=== PATIENT | male | born 2000 | race Caucasian/White ===

== ENCOUNTER → 2021-04-26 10:49 | Outpatient (BNVA) | payer BC, MEDICAID, SELFPAY | PROVIDERS: Family Provider Registered Nurse; PCP Registered Nurse; Visit Provider Registered Nurse Neonatal Intensive Care | DX: R52 Pain, unspecified (principal); S63.501A Unspecified sprain of right wrist, initial encounter; X58.XXXA Exposure to other specified factors, initial encounter; Z71.89 Other specified counseling | CPT/HCPCS: 73110 ==

== ENCOUNTER 2023-06-02 17:35 | Emergency (ER) | payer OTHER, BC, MEDICAID, SELFPAY ==
[2023-06-02 17:36] VITALS: BP 148/82; PULSE 75; RESP 17; TEMP 37.2; O2SAT 97; BMI 21.4
--- NOTE | 2023-06-02 17:44 | ECG_ITS ---
[facility] Test Date: 2023-06-02 Pat Name: Yasmani Lira Department: Room: Gender: Male Ios Architect: : 2000 Requested By: Felice Smith Order Number: [id number] Khan MD: Ancelmo Newberry M.D. Measurements Intervals [place] Rate: 84 P: 66 MN: 141 QRS: 90 QRSD: 109 T: 35 QT: 360 QTc: 426 Interpretive Statements SINUS RHYTHM WITH SINUS ARRHYTHMIA No previous ECG available for comparison Electronically Signed On 06-02-2023 20:33:49 CDT by Ancelmo Newberry M.D. [id number]
[2023-06-02 17:49] VITALS: BP 151/73; PULSE 91; RESP 17; O2SAT 99
--- NOTE | 2023-06-02 17:56 | XRR_ITS ---
PROCEDURE INFORMATION: Exam: XR Chest Exam date and time: 06/02/2023 6:27 PM Age: 23 years old Clinical indication: Chest pressure; Patient HX: Sudden onset right chest pain; Nonsmoker; HX asthma TECHNIQUE: Imaging protocol: Radiologic exam of the chest. Views: 1 view. COMPARISON: CR XR ribs RT mn 3V w CXR1V [id number] 03/10/2017 8:10 PM FINDINGS: Tubes, catheters and devices: Overlying monitor leads. Lungs: Unremarkable. No consolidation. Pleural spaces: Unremarkable. No pleural effusion. No pneumothorax. Heart/Mediastinum: Unremarkable. No cardiomegaly. Bones/joints: Visualized osseous structures show no acute abnormality. Other findings: No significant change with prior exam. XR/XR chest 1V portable [id number] IMPRESSION: No acute cardiopulmonary abnormality.
--- NOTE | 2023-06-02 17:57 | W.ED.CHESTPA ---
HPI - Chest Pain General: Chief Complaint: Chest Pain Stated Complaint: tightness in chest Time Seen by Provider: 06/02/23 17:39 History of Present Illness: This patient came to the emergency department because he had onset of sharp chest pain approximately an hour prior to arrival and he thought he might be having a heart attack. 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 He states that he released the tension and then stood up and felt sharp pain in his right chest. He states the pain seems to worsen with deep breaths. He denies any prior history of similar occurrence. He has no history of heart disease. He has had a normal active lifestyle with any restrictions previously. He does vape occasionally but does not smoke tobacco. No feelings of extreme shortness of breath, fever chills cough etc. No abdominal pain. He did not fall or injure himself. Associated symptoms: Deny abdominal pain, dyspnea, fever(s), nausea, palpitations, syncope or vomiting Review of Systems Const: Denies: fever(s) or chills ENMT: Denies: throat pain, odynophagia, nasal discharge or nasal congestion Card: Denies: palpitations, irregular heart rhythm, lightheadedness, syncope or pre-syncope Resp: Denies: dyspnea, productive cough, non-productive cough or wheezing GI: Denies: abdominal pain, nausea or vomiting : Denies: flank pain, difficulty urinating or dysuria Musc: Denies: neck pain, extremity pain or extremity swelling Neuro: Denies: headache(s), numbness in extremities or weakness in extremities [facility] ED PFSH: Social History (Updated 04/26/21 @ 10:24 by Yessenia Hernandes LPN) Smoking and tobacco status: never smoked Physical Exam Narrative: EXAM NARRATIVE: The patient is alert no acute distress answers questions in a goal-directed fashion. Const: COMMON NORMALS: no acute distress, average body habitus, patient oriented x3 and alert GENERAL APPEARANCE: cooperative and comfortable HENMT: COMMON NORMALS: normocephalic, Normal nasal mucous membranes and turbinates present and moist oral mucous membranes HEAD & SCALP: normocephalic NOSE: Normal nasal mucous membranes and turbinates present Eye: COMMON NORMALS: Equal, round and reactive pupils present, EOMs intact bilaterally and conjunctivae normal CONJUNCTIVA: Yes conjunctivae normal PUPIL: Yes Equal, round and reactive pupils present Neck/C-Spine: COMMON NORMALS: full ROM and supple Chest: COMMONS NORMALS: normal inspection of the chest Chest images (male): 1. Area of tenderness Resp: COMMON NORMALS: normal respiratory effort, No retractions, No use of accessory muscles and clear to auscultation bilaterally AUSCULTATION: clear to auscultation bilaterally Cardio: COMMON NORMALS: regular rate, regular rhythm, No murmurs present (Cardio) and Peripheral pulses 2+ throughout RATE: regular rate RHYTHM: regular rhythm PERIPHERAL PULSES: Peripheral pulses 2+ throughout GI: COMMON NORMALS: Normal to inspection, nondistended, normoactive bowel sounds present, Soft to palpation and non-tender PALPATION: Yes Soft to palpation : COMMON NORMALS: Yes no CVA tenderness BLADDER/KIDNEY EXAM: Yes no CVA tenderness Back/Pelvis: COMMON NORMALS: no CVA tenderness, thoracic and lumbar spine normal to inspection, thoraco-lumbar ROM normal and straight leg raise negative bilaterally BACK IMAGE (MALE): 1. Area of tenderness Extremity: COMMON NORMALS: normal to inspection, full ROM, capillary refill normal, no calf tenderness and no pedal edema Neuro: COMMON NORMALS: patient oriented x3, moves all extremities, no focal motor deficits and no sensory deficits noted SENSORIUM/ORIENTATION: Yes alert CRANIAL NERVES: Yes CN normal except as noted Psych: COMMON NORMALS: mental status grossly normal Skin: COMMON NORMALS: no rashes or lesions noted, no wounds and turgor normal GENERAL SKIN EXAM: no rashes or lesions noted and turgor normal Course Reevaluation(s): Reevaluation #1: The patient remains comfortable without any new findings on repeat evaluation. He has normal vital signs including normal blood pressure, pulse oximetry no evidence of tachycardia etc. Time: 18:54 Vital Signs: Vital signs: Vital Signs Temperature 99 F 06/02/23 17:36 Pulse Rate 91 06/02/23 17:49 Respiratory Rate 17 06/02/23 17:49 Blood Pressure 151/73 06/02/23 17:49 Pulse Oximetry 99 06/02/23 17:49 Oxygen Delivery Me thod Room Air 06/02/23 17:49 MDM - Chest Pain Medical Decision Making This patient made his way to the emergency department after he suffered acute onset of right trunk pain after he was involved in helping load and adjust a ratchet strap on the trailer. He states he was doing this activity and then stood back up and felt pain in his right trunk. He did not fall or have any associated trauma. He is concerned he might be having a heart problem although he has no history of cardiovascular disease and is normally very healthy. His clinical examination revealed to be in no acute distress had normal body habitus. He did have tenderness to palpation over the right anterior lateral chest as well as the corresponding right thoracic region of his trunk. There is no evidence of ecchymosis, subcutaneous emphysema etc. Rotation of his trunk exacerbated his symptoms. Resting EKG was reassuring without any acute changes. His prolonged monitoring in the emergency department revealed normal sinus rhythm without arrhythmia. Chest x-ray obtained did not reveal any evidence of pneumothorax or other concerning findings. He remained stable in the emergency department without any stigmata that would suggest any ongoing emergency medical condition. We discussed current findings their limitations ramifications and reasons to return to the emergency department. XR interpretation done by ED provider, pending radiology final review EKG Data EKG 1: I personally reviewed and interpreted this EKG as follows: Interpretation: Contemporaneous review of resting EKG reveals a ventricular rate of 84 bpm. Normal SC interval, normal QRS duration, normal corrected QT interval. Normal axis. He has episodic sinus arrhythmia but otherwise no acute ST-T wave changes at this time. Discharge Plan Discharge Patient Disposition: Home Clinical Impression: Chest wall pain Condition: Stable Prescriptions: No Action doxycycline hyclate 100 mg capsule 100 mg PO BID 7 Days Qty: 14 0RF amoxicillin-pot clavulanate [Augmentin] 875-125 mg tablet 1 tab PO BID 7 Days Qty: 14 0RF Discharge Orders: Discharge ED (Routine); Ordered 06/02/23 Ordered By: Felice Smith Referrals: Diane Brito FNP [Primary Care Provider] - Discharge Diet: Usual diet Discharge Activity: Limit activity as instructed Patient Instructions: Opioid Safety, Pain Management Activity Restrictions/Additional Instructions: As we discussed your evaluation in the emergency department did reveal any serious cause of your symptoms. Is likely due to strain of the muscles and other tissues of your chest and back. Should you develop increasing pain, fever or difficulty breathing or other concerning symptoms return to the emergency department for reevaluation. Stand Alone Forms: Work/School Release Coding Level of Care Code ED Tuckpointer Cleaner Caulker for Chg Fwd
== END 2023-06-02 19:20 | disposition home or self-care (01) ==
PROVIDERS: Emergency Provider Emergency Medicine; PCP Registered Nurse
DX: R07.89 Other chest pain (principal)
CPT/HCPCS: 71045; 93005; 99284

== ENCOUNTER 2025-05-16 19:36 | Emergency (ER) | payer OTHER, SELFPAY ==
--- OUTSIDE RECORDS SUMMARY | 2019-07-24 04:00 | XMS_ITS | Continuity of Care Document ---
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 - Active Substitutions allowed Periogard 0.12 % mouthwash This is an oral rinse. Swish with one capful for 30 seconds then spit out. Twice a day. DO NOT EAT OR DRINK FOR ONE HOUR FOLLOWING. - Active 1 Bottle Substitutions allowed Procedures Procedure Date Removal Of Impacted Tooth Soft Tissue Removal Of Impacted Tooth Partially Bony Removal Of Impacted Tooth Partially Bony IV Moderate (conscious) Sedation/analges ia, First 15 Min EDR Approval Note Limited Oral Evaluation Problem Focused EDR Approval Note Advance Directives Directive Yes / No Effective Date File Name No Information Encounters Encounter Description Practice Location Reason(s) For Visit Diagnoses Date Provider Providers Copied on Encounter [facility], [id number] [place], [place], [id number], [place] tel:[phone] [facility] Encounter for dental exam and cleaning w/o abnormal findings No Information [facility], [id number] [place], [place], [id number], [place] tel:[phone] [facility] Encounter for dental exam and cleaning w/o abnormal findings No Information Family History Family Member Type Diagnosis Age At Onset No Information Payers Payer name Insurance type Covered libertarian ID Authorjacquelina tidena(s) No Information Social History Type Description Quantity Date Captured Comments Alcohol Use Details No Caffeine Use Details Unknown Tobacco Use Status Current non-smoker 20 Smoking Status Never smoker Non-Smoking Tobacco Use Details : No Details Available : No Details Available Sex Male Chief Complaint And Reason For Visit No Information Reason For Referral Reason For Referral No Information History Of Present Illness Encounter Date Complaint History Of Prese nt Illness No Information Functional Status Date Functional Assessmen t No Information Instructions Date Instruction Additional Infor mation Lifestyle education Related to D ental Examination Lifestyle education Related to D ental Examination Assessments Type Assessment Date No Information Patient Care Teams Name Effective Dates (start - stop) Status Members No Information
--- OUTSIDE RECORDS SUMMARY | 2025-05-14 12:00 | XMS_ITS | Encounter Summary ---
Author Organization [facility] Address [address] [place] [address] Care Team Providers Care Cigarette Filter Inspector Name Role Phone Mindi Hodge Primary Care Provider Reason for Visit * Reason Comments Chronic Conditions Coordination Follow Up Blood tests Encounter Details Date Type Department Care Team (Latest Contact Info) Description 05/14/2025 12:00 PM CDT Office Visit [facility] [address] [place] [address] [address] [place] [address] Tension headache (Primary Dx); Mixed hyperlipidemia Social History Tobacco Use Types Packs/Day Years Used Date Smoking Tobacco: Never Passive Smoke Exposure: Never Smokeless Tobacco: Never Tobacco Cessation:Counseling Given: No Alcohol Use Standard Drinks/Week Comments No 0 (1 standard drink = 0.6 oz pur e alcohol) Feeling Safe Answer Date Recorded Are you in a relationship wi th someone who hurts you emotionally and/or physically? 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 Gender Identity Not on file Sexual Orientation Not on file documented as of this encounter Last Filed Vital Signs Vital Sign Reading Time Taken Comments Blood Pressure 130/72 05/14/2025 11:50 AM CDT Pulse 90 05/14/2025 12:11 PM CDT Temperature 36.8 C (98.2 F) 05/14/2025 11:50 AM CDT Respiratory Rate 18 05/14/2025 11:50 AM CDT Oxygen Saturation 98% 05/14/2025 11:50 AM CDT Inhaled Oxygen Concentration - - Weight 64 kg (141 lb) 05/14/2025 11:50 AM CDT Height 175.3 cm (5' 9 ) 05/14/2025 11:50 AM CDT Body Mass Index 20.82 05/14/2025 11:50 AM CDT documented in this encounter Progress Notes * MorenoEverett Kieran, LEDGER CLERK - 05/14/2025 11:52 AM CDT Chief Complaint Patient presents with Chronic Conditions Coordination Follow Up Blood tests Patient Active Problem List Diagnosis Code GERD (gastroesophageal reflux disease) K21.9 Psoriasis (a type of skin inflammation) L40.9 Mild intermittent asthma with acute exacerbation J45.21 Environmental and seasonal allergies J30.89 Environmental tobacco smoke exposure Z77.22 Bradycardia by electrocardiography R00.1 History of Present Illness A 24-year-old male presents for a general health follow-up with concerns of headaches, excessive sweating, and vaping. Headaches: The patient reports mild headaches that have persisted for one year and are worsened by activity or work. These headaches are associated with neck strain, occasional eye pain likely due tophone use, morning stomach discomfort, and a sense of imbalance. He denies any vision changes and describes the headaches as a tugging sensation that causes lethargy. 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 He is open to trying ketorolac for symptom relief. Excessive sweating: The patient has experienced excessive sweating for the past 3-4 years, even while at rest. The sweating predominantly affects his hands and feet, necessitating frequent sheet changes despite maintaining a cool room environment. Vaping: The patient has been gradually reducing his vaping over the past three days and seeks advice for cessation. 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 10 point review of systems is otherwise negative except as mentioned above. Past Medical History: Diagnosis Date Patient denies relevant medical history Psoriasis Current Outpatient Medications Medication Instructions albuterol sulfate 90 mcg/Actuation inhaler 2 Puffs, Inhalation, EVERY 6 HOURS PRN hydrOXYzine HCL (ATARAX) 25 mg, Oral, THREE TIMES DAILY PRN Past Surgical History: Procedure Laterality Date HX HERNIA REPAIR 02/02 Past social, family, and medical history reviewed. BP 130/72 Pulse 90 Temp 98.2 ??F (36.8 ??C) Resp 18 Ht 5' 9 (1.753 m) Wt 64 kg (141 lb) SpO2 98% BMI 20.82 kg/m?? Physical Exam Constitutional: General: He is not in acute distress. Appearance: Normal appearance. He is not ill-appearing. HENT: Head: Normocephalic. Right Ear: External ear normal. Left Ear: External ear normal. Nose: Nose normal. Eyes: Conjunctiva/sclera: Conjunctivae normal. Cardiovascular: Rate and Rhythm: Normal rate and regular rhythm. Pulses: Normal pulses. Heart sounds: Normal heart sounds. No murmur heard. Pulmonary: Effort: Pulmonary effort is normal. No respiratory distress. Breath sounds: Normal breath sounds. Musculoskeletal: Right lower leg: No edema. Left lower leg: No edema. Skin: General: Skin is warm and dry. Neurological: Mental Status: He is alert and oriented to person, place, and time. Psychiatric: Mood and Affect: Mood normal. Behavior: Behavior normal. ICD-10-CM ICD-9-CM 1. Tension headache G44.209 307.81 CBC WITH DIFFERENTIAL COMPREHENSIVE METABOLIC PANEL ketorolac (TORADOL) injection 60 mg 2. Mixed hyperlipidemia E78.2 272.2 CBC WITH DIFFERENTIAL COMPREHENSIVE METABOLIC PANEL TSH LIPID PANEL Assessment & Plan Tension headache: - Likely tension headache, exacerbated likely by dehydration and vaping exposure. - Administer IM 60 mg ketorolac injection today. - Perform blood work today. - Advise reducing vaping by 25%- 50% and then eventually stop - Return if symptoms persist or worsen. Hyperhidrosis: - Excessive sweating unlikely due to significant underlying condition; thyroid function normal previously. - Advise reducing vaping by 25%- 50% to start with and see if symptom gets better. - Return if symptoms persist or worsen. Vaping cessation: - Recommend peer support and motivation for cessation. - No specific medication prescribed for non-tobacco chemicals in vapes. Follow-up: - Next scheduled visit or as needed. RAFA Mobley The author of this note, patient (or authorized media sales representative), and all other persons present consent to the audio recording of this visit for charting documentation purposes. This note was automatically generated, edited by a Quality Valet Parking Attendant, and finalized by DAVE Brown. documented in this encounter Plan of Treatment Pending Results Name Type Priority Associated Diagnoses Date /Time COMPREHENSIVE METABOLIC PANEL Lab Routine Tension headache Mixed hyperlipidemia 05/14/2025 12:26 PM CDT LIPID PANEL Lab Routine Mixed hyperlipidemia 05/14/2025 12:26 PM CDT Scheduled Orders Name Type Priority Associated Diagnoses Orde r Schedule COMPREHENSIVE METABOLIC PANEL Lab Routine Tension headache Mixed hyperlipidemia Expected: 05/14/2025, Expires: 05/14/2026 LIPID PANEL Lab Routine Mixed hyperlipidemia Expected: 05/14/2025, Expires: 05/14/2026 documented as of this encounter Procedures Procedure Name Priority Date/Time Associated Diagnosis Comments CBC WITH DIFFERENTIAL Routine 05/14/2025 12:26 PM CDT Tension headache Mixed hyperlipidemia TSH Routine 05/14/2025 12:26 PM CDT Mixed hyperlipidemia documented in this encounter Results * TSH (05/14/2025 12:26 PM CDT) TSH 0.63 0.40 - 4.50 mIU/L [facility] Comment: Test Performed at: [facility] [address] [place] [address] Lakisha Vernon MD Blood 05/14/2025 12:2 6 PM CDT 2025 4:39 AM CDT us Everett ACOSTA CHEMISTRY ORDERABLES Final Result [facility] [phone] [facility] [address] [place] [address] * (ABNORMAL) CBC WITH DIFFERENTIAL (05/14/2025 12:26 PM CDT) [facility] WBC 5.9 3.8 - 10.8 Thousand/u L [facility] RBC 5.83(H) 4.20 - 5.80 Million/uL [facility] HEMOGLOBIN 17.4(H) 13.2 - 17.1 g/dL [facility] HEMATOCRIT 52.2(H) 38.5 - 50.0 % [facility] MCV 89.5 80.0 - 100.0 fL [facility] MCH 29.8 27.0 - 33.0 pg [facility] MCHC 33.3 32.0 - 36.0 g/dL [facility] Comment: For adults, a slight decrease in the calculated MCHC value (in the range of 30 to 32 g/dL) is most likely not clinically significant; however, it should be interpreted with caution in correlation with other red cell parameters and the patient's clinical condition. RDW 12.6 11.0 - 15.0 % [facility] PLATELETS 292 140 - 400 Thousand/u L [facility] MPV 10.8 7.5 - 12.5 fL [facility] NEUTROPHIL ABSOLUTE 4,165 1,500 - 7,800 cells/uL [facility] LYMPHOCYTE ABSOLUTE 1,269 850 - 3,900 cells/uL [facility] MONOCYTE ABSOLUTE 378 200 - 950 cells/uL [facility] EOSINOPHIL ABSOLUTE 71 15 - 500 cells/uL [facility] BASOPHILS ABSOLUTE 18 0 - 200 cells/uL [facility] NEUTROPHIL 70.6 % [facility] LYMPHOCYTES 21.5 % [facility] MONOCYTE 6.4 % [facility] EOSINOPHILS 1.2 % [facility] BASOPHILS 0.3 % [facility] Comment: Test Performed at: [facility] [address] [place] [address] Lakisha Vernon MD Blood 05/14/2025 12:2 6 PM CDT 2025 4:39 AM CDT Everett Alcaraz Moreno LEDGER CLERK HEMATOLOGY ORDERABLES Sapna hoyos Result [facility] [phone] [facility] [address] [place] [address] documented in this encounter Visit Diagnoses Diagnosis Tension headache- Primary Mixed hyperlipidemia documented in this encounter Administered Medications Inactive Administered Medications - up to 3 most recent administrations Medication Order MAR Action Action Date Dose Rate Site ketorolac (TORADOL) injection 60 mg 60 mg, IM, ONE TIME ONLY, 1 dose, On Sat05/14/25 at 1215, RoutineIndications:Tension headache Given 05/14/2025 12:00 PM CDT 60 mg Buttock, Left documented in this encounter Care Teams Cigarette Filter Inspector Relationship Specialty Start Date End Date Mindi Hodge DO [address] [place] [address] PCP - General Family Practice 06/06/10 documented as of this encounter
[2025-05-16 19:40] VITALS: BP 145/80; PULSE 66; RESP 16; TEMP 36.8; O2SAT 99; BMI 20.8
--- OUTSIDE RECORDS SUMMARY | 2025-05-16 19:43 | XMS_ITS | Clinical Summary ---
Author Organization [email or web address] Address [address] [facility] Attn: Epic Prelude ADT [place] [address] Care Team Providers Care Director Of Institutional Sales Name Role Phone NaveenRuthannshreya Vera DO Primary Care Provider Allergies Active Allergy Reactions Criticality Noted Date Comments Amoxicillin Rash Low 06/06/2010 Medications albuterol sulfate 90 mcg/Actuation inhalerIndication s:Mild intermittent asthma with acute exacerbation Take 2 Puffs by inhalation every 6 hours as needed for Shortness of Breath Or use before exercise.. 6.7 Gram 3 5 Active hydrOXYzine HCL (ATARAX) 25 mg tabletIndications :Rash of entire body Take 1 Tablet (25 mg) by mouth 3 times daily as needed for Itching. 30 Tablet 3 5 Active Hospital, Clinic, or Other Facility Administered Medication Ordered Dose Route Frequency Start Date End Date Status ketorolac (TORADOL) injection 60 mgIndications:Tension headache 60 mg IM ONE TIME ONLY 05/14/2025 05/14/2025 Ended Active Problems Problem Noted Date Diagnosed Date Bradycardia by electrocardiography 06/03/2023 Mild intermittent asthma with acute exacerbation 06/13/2015 Environmental and seasonal allergies 06/13/2015 Environmental tobacco smoke exposure 06/13/2015 Psoriasis (a type of skin inflammation) 09/01/20 13 GERD (gastroesophageal reflux disease) 1 Resolved Problems Problem Noted Date Diagnosed Date Resolved Date Musculoskeletal chest pain 06/03/2023 0 09/29/2024 Asthma 09/01/2013 09/29/2024 Encounters Date Type Department Care Team Description 05/14/2025 12:00 PM CDT Office Visit [facility] [address] [facility] [place] [address] Everett Moreno, CATHEAD OPERATOR Tension headache (Primary Dx); Mixed hyperlipidemia 05/04/2025 External Device Data STL ABSTRACTION Provider, Abstract 04/27/2025 External Device Data [place] ABSTRACTION Provider, Abstract 04/07/2025 External Device Data ST[place] ABSTRACTION Provider, Abstract 03/17/2025 External Device Data [place] ABSTRACTION Provider, Abstract 03/17/2025 External Device Data ST[place] ABSTRACTION Provider, Abstract 03/09/2025 External Device Data ST[place] ABSTRACTION Provider, Abstract 03/02/2025 External Device Data ST[place] ABSTRACTION Provider, Abstract from Last 3 Months Immunizations Immunization Administration Dates Next Due (ADACEL/BOOSTRIX)(10 YR UP) TDAP VACCINE, 0.5ML, IM 09/07/2023 (GARDASIL)(9-45 YRS) HUMAN PAPILLOMAVIRUS VACCINE, TYPES 6, 11, 16, 18, QUADRIVALENT (4VHPV), 3 DOSE, IM 01/11/2015 (M-M-R II/PRIORIX)(12 MO UP) MEASLES, MUMPS AND RUBELLA VIRUS VACCINE, 0.5 ML IM/SUBCUT 02/21/2007,06/08/2002 (MENACTRA)(9 MO-55 YR) MENIN GOCOCCAL POLYSACCHARIDE A, C, Y AND W-135 DIPTHERIA TOXOID CONJUGATE VACCINE, (PF), 0.5ML, IM 03/10/2019 (VARIVAX)(12 MOS UP)VARICELL A VIRUS VACCINE (PF) 0.5 ML, SUB CUT 02/21/2007,06/08/2002 Dt Dtp Dtap Vaccine 02/21/2007, 2,2001,09/29,2001 HIB, Unspecified Formulation 06/22/2002, 2001,2001,07/21 HPV Vaccine 3 Dose IM VFC 06/27/2015,12/10/2014 Hepatitis B Vaccine 2001,2001,2000 IPV/OPV 02/21/2007, 2,2001,07/21 Meningococcal A Conjugate Va ccine IM VFC 12/10/2014 Pneumococcal 7-valent conjug ate vaccine IM 06/08/2002,2001,2001,07/21 Tdap Vaccine > 7 Yo IM VFC 12/10/2014 Family History Relation Name Status Comments Father Alive Maternal Grandfather Alive Maternal Grandmother Alive Mother Alive Paternal Grandfather Alive Paternal Grandmother Alive Social History Tobacco Use Types Packs/Day Years [...] on file 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 Gender Identity Not on file Sexual Orientation Not on file Last Filed Vital Signs Vital Sign Reading [...] Mass Index 20.82 05/14/2025 11:50 AM CDT Plan of Treatment Health Maintenance Due Date Last Done Comments INFLUENZA VACCINE (#1) 2025 DTAP/TDAP/TD VACCINES (8 - T d or Tdap) 09/07/2033 09/07/2023, 12/10/2014, 02/21/2007, Additional history exists HEPATITIS B VACCINES Completed 2001, 2001, 2001, Additional history exists HPV VACCINES Completed 06/27/2015, 12/31, 12/10/2014 Preventative Visit- Commercial Completed 0 09/29/2024, 03/10/2019, 12/10/2014 Procedures Procedure Name Priority Date/Time Associated Diagnosis Comments CBC WITH DIFFERENTIAL Routine 05/14/2025 12:26 PM CDT Tension headache Mixed hyperlipidemia TSH Routine 05/14/2025 12:26 PM CDT Mixed hyperlipidemia from Last 3 Months Results * (ABNORMAL) CBC WITH DIFFERENTIAL (05/14/2025 12:26 PM CDT) WBC 5.9 3.8 - 10.8 Thousand/u L [...] [facility] Comment: Test Performed at: [email or web address] [address] [place] [address] VickiYanet Vernon MD Blood 05/14/2025 12:2 6 PM CDT 2025 4:39 AM CDT Everett Moreno [facility] HEMATOLOGY ORDERABLES Sapna l Result [facility] [phone] [email or web address] [address] [place] [address] * TSH (05/14/2025 12:26 PM CDT) TSH 0.63 0.40 - 4.50 mIU/L [facility] Comment: Test Performed at: [facility] [address] [place] [address] VickiYanet Vernon MD Blood 05/14/2025 12:2 6 PM CDT 2025 4:39 AM CDT Everett Moreno [facility] CHEMISTRY ORDERABLES Final Result [facility] [phone] [facility] [address] [place] [address] from Last [address] [place] [id number] [facility], [facility] ACCESS Care Teams Director Of Institutional Sales Relationship Specialty Start Date End Date Mindi Hodge DO [address] [place] [address] PCP - General Family Practice 06/06/10
--- OUTSIDE RECORDS SUMMARY | 2025-05-16 19:43 | XMS_ITS | Encounter Summary ---
Author Organization [facility] Address [address] [place] [address] Care Team Providers Care Transportation Lead Name Role Phone Mindi Hodge DO Primary Care Provider Encounter Details Date Type Department Care Team (Late st Contact Info) Description 02/18/2007 Outpatient Historical [facility] Dermatology- 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
--- OUTSIDE RECORDS SUMMARY | 2025-05-16 19:43 | XMS_ITS | Clinical Summary ---
Author Organization [facility] Address [address] [place] [address] Care Team Providers Care Roofer Applicator Name Role Phone Naveen, Mindi L DO Primary Care Provider [phone] Allergies Active Allergy Reactions Criticality Noted Date Comments Amoxicillin Rash Low 06/06/2010 Medications albuterol HFA 90 mcg inhalerIndication s:Mild intermittent asthma with acute exacerbation Take 2 Puffs by inhalation every 6 hours as needed for Shortness of Breath Or use before exercise.. 6.7 Gram 3 5 Active Active Problems Problem Noted Date Diagnosed Date Environmental and seasonal allergies 06/13/2015 Mild intermittent asthma with acute exacerbation 06/13/2015 Environmental tobacco smoke exposure 06/13/2015 Psoriasis (a type of skin inflammation) 09/01/20 13 Asthma 09/01/2013 GERD (gastroesophageal reflux disease) 1 Immunizations Immunization Administration Dates Next Due (GARDASIL)(9-45 YRS) HUMAN PAPILLOMAVIRUS VACCINE, TYPES 6, [...] Packs/Day Years Used Date Smoking Tobacco: Never Smokeless Tobacco: Never Alcohol Use Standard Drinks/Week Comments No 0 (1 standard drink = 0.6 oz pur e alcohol) Sex and Gender Information Value Date Recorded Sex Assigned at Not on file 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 Gender Identity Not on file Sexual Orientation Not on file Last Filed Vital Signs Vital Sign Reading Time Taken Comments Blood Pressure 100/70 11/26/2019 1:07 PM CDT Pulse 65 11/26/2019 1:07 PM CDT Temperature 37.4 C (99.4 F) 11/26/2019 1:07 PM CDT Respiratory Rate 18 03/10/2019 3:24 PM CDT Oxygen Saturation 98% 11/26/2019 1:07 PM CDT Inhaled Oxygen Concentration - - Weight 66.5 kg (146 lb 9.6 oz) 11/26/2019 1:07 P M CDT Height 172.7 cm (5' 8 ) 11/26/2019 1:07 PM CDT Body Mass Index 22.29 11/26/2019 1:07 PM CDT Plan of Treatment Health Maintenance Due Date Last Done Comments DTAP/TDAP/TD VACCINES (7 - T d or Tdap) 12/10/2024 12/10/2014, 02/21/2007, 06/22/2002, Additional history exists INFLUENZA VACCINE (#1) 2025 Preventative Visit-Managed Medicaid 09/30/2025 09/29/2024, 03/10/2019, 12/10/2014 HEPATITIS B VACCINES Completed 2001, 2001, 2001 HPV VACCINES Completed 06/27/2015, 12/31, 12/10/2014 Insurance [facility] MEDICAID [facility] MEDICAID Care Teams Roofer Applicator Relationship Specialty Start Date End Date Mindi Hodge DO [address] [place] [phone] PCP - General Family Practice 06/06/10
--- OUTSIDE RECORDS SUMMARY | 2025-05-16 19:43 | XMS_ITS | Encounter Summary ---
Author Organization [facility] Address [address] [place] [address] Care Team Providers Care Online Advertising Analyst Name Role Phone Mindi Hodge DO Primary Care Provider Encounter Details Date Type Department Care Team (Latest Contact Info) Description 02/21/2004 Outpatient Historical [facility] Gen Spec Surg [address] [place] [address] Melquiades Sexton MD [address] [facility], [address] [place] [address] UNILAT INGUINAL HERNIA (Primary Dx) Social History Tobacco Use Types Packs/Day Years Used Date Smoking Tobacco: Never Assessed Sex and Gender Information Value Date Recorded Sex Assigned at Not on file 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
--- OUTSIDE RECORDS SUMMARY | 2025-05-16 19:43 | XMS_ITS | Encounter Summary ---
Author Organization [facility] Address [address] [place] [address] Care Team Providers Care Flask Maker Name Role Phone Mindi Hodge DO Primary Care Provider [phone] Encounter Details Date Type Department Care Team (Latest Contact Info) Description 10/31/2006 Outpatient Historical [facility] Medicine- [place] [address] [place] [phone] Melo Mills MD NO ADDRESS ON FILE Other Psoriasis and Similar Disorders (Primary Dx) Social History Tobacco Use Types Packs/Day Years Used Date Smoking Tobacco: Never Assessed Sex and Gender Information Value Date Recorded Sex Assigned at Not on file 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
--- OUTSIDE RECORDS SUMMARY | 2025-05-16 19:43 | XMS_ITS | Encounter Summary ---
Author Organization [facility] Address [address] [place] [address] Care Team Providers Care Farm Machinery Assembler Name Role Phone Mindi Hodge DO Primary Care Provider Encounter Details Date Type Department Care Team (Latest Contact Info) Description 03/01/2004 Outpatient Historical [facility] [address] [place] [phone] Melquiades Sexton MD [address] [facility], [address] [place] [address] UNILAT INGUINAL HERNIA (Primary Dx) Social History Tobacco Use Types Packs/Day Years Used Date Smoking Tobacco: Never Assessed Sex and Gender Information Value Date Recorded Sex Assigned at Not on file 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
--- OUTSIDE RECORDS SUMMARY | 2025-05-16 19:43 | XMS_ITS | Encounter Summary ---
Author Organization [facility] Address [address] [place] [address] Care Team Providers Care Ophthalmic Pathologist Name Role Phone Mindi Hodge DO Primary Care Provider Encounter Details Date Type Department Care Team (Latest Contact Info) Description 03/09/2004 Outpatient Historical [facility] Gen Spec Surg [place] [address] [place] [address] Akiko White, GENERAL DENTIST/OWNER NO ADDRESS ON FILE UNILAT INGUINAL HERNIA (Primary Dx); SURGERY FOLLOWUP, UNSPEC Social History Tobacco Use Types Packs/Day Years Used Date Smoking Tobacco: Never Assessed Sex and Gender Information Value Date Recorded Sex Assigned at Not on file 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
[2025-05-16 21:25] VITALS: BP 133/82; PULSE 72; RESP 18; O2SAT 100
--- NOTE | 2025-05-16 21:30 | ED_ITS ---
HPI - General Adult 2 General: Chief complaint: Abdominal Pain Stated complaint: Abd Pain, Headache Time Seen by Provider: 05/16/25 19:37 Source: patient Mode of arrival: ambulatory Limitations: no limitations History of Present Illness: Patient is a 25-year-old male presents to ED today with complaint of intermittent abdominal pain and intermittent headaches over the past 3 days or so. States to go seems to come and go does seem to be worse with eating. He has had episodes of decreased appetite and nausea. He has not had any episodes of emesis. He feels like his bowel movements are normal. He has not had any fevers. He has not noticed any yellowing to his skin or eyes. He denies NSAID use or alcohol use. No marijuana use. States he did get some relief from Pepto-Bismol last night. He states headaches seem to be intermittent as well. He is currently rating it as a 5/10. No neurologic deficits. No neck pain or stiffness. No history of migraines. This is not the worst headache of his life. Onset (ago): day(s) Severity: moderate Pain Consistency: intermittent Relieving factors: other (abdominal pain improved with pepto) Exacerbating factors: other (abdominal pain worse with eating) Associated symptoms: Reports headache(s) and nausea; Deny chest pain, confusion, dyspnea, malaise, rash or vomiting Treatments prior to arrival: none Related Data Previous Rx's ?Medication ?Instructions ?Recorded pantoprazole 40 mg tablet,delayed 40 mg PO DAILY 2 wee ks #14 tabs 05/16/25 release (Protonix) sucralfate 1 gram tablet (Carafate) 1 g PO TID 2 weeks #42 tabs 05/16/25 Allergies Allergy/AdvReac Type Severity Reaction Status Date / Time amoxicillin Allergy ALGY-Rash Verified 05/16/25 19:48 Review of Systems 2 Const: Reports: change in appetite; Denies: fever(s), chills, body aches, change in weight, fatigue or malaise Eyes: Denies: change in vision, blurry vision or yellow eyes ENMT: Denies: throat pain, odynophagia, nasal discharge, nasal congestion or sinus pain Card: Denies: chest pain Resp: Denies: dyspnea GI: Reports: abdominal pain and nausea; Denies: vomiting, diarrhea, change in bowel habits, hematochezia or melena : Denies: flank pain, difficulty urinating, dysuria, urinary frequency, urinary urgency or urinary hesitancy Musc: Denies: neck pain, back pain, extremity pain, extremity swelling, joint pain, joint swelling or joint redness Skin/Breast: Denies: rash Neuro: Reports: headache(s); Denies: numbness in extremities, weakness in extremities, sensory changes, difficulty walking, dizziness, confusion or behavioral changes PFSH ED 2 PFSH: Social History Smoking and tobacco/nicotine status: never used tobacco/nicotine Physical Exam 2 Const: COMMON NORMALS: no acute distress, average body habitus, patient oriented x3, no limitations, healthy appearing, alert and well nourished G ENERAL APPEARANCE: cooperative ORIENTATION/CONSCIOUSNESS: Yes awake, Yes oriented to person, Yes oriented to place and Yes oriented to time HENMT: COMMON NORMALS: normocephalic and atraumatic HEAD & SCALP: normal to inspection, normocephalic and atraumatic Eye: GENERAL EYE: appearance normal, both eyes and all related structures Neck/C-Spine: COMMON NORMALS: full ROM, no lymphadenopathy, supple and no meningeal signs Chest: COMMONS NORMALS: normal inspection of the chest Resp: COMMON NORMALS: normal respiratory effort and clear to auscultation bilaterally AUSCULTATION: clear to auscultation bilaterally Cardio: COMMON NORMALS: regular rate and regular rhythm RATE: regular rate RHYTHM: regular rhythm GI: COMMON NORMALS: Normal to inspection, nondistended, normoactive bowel sounds present, Soft to palpation, No hepatosplenomegaly present and no masses INSPECTION: Yes normal to inspection AUSCULTATION: Yes normoactive bowel sounds PALPATION: Yes Soft to palpation, Yes Tenderness to palpation present (GI) (mild diffuse-non surgical examination), No Guarding due to palpation present (GI), No Rigid due to palpation and Yes No hepatosplenomegaly present : COMMON NORMALS: Yes no CVA tenderness BLADDER/KIDNEY EXAM: Yes no CVA tenderness Back/Pelvis: COMMON NORMALS: no CVA tenderness and thoracic and lumbar spine normal to inspection Extremity: COMMON NORMALS: normal to inspection GENERAL: Yes normal exam except as noted Neuro: COMMON NORMALS: patient oriented x3, moves all extremities, no focal motor deficits and no sensory deficits noted SENSORIUM/ORIENTATION: Yes alert, Yes oriented to person, Yes oriented to place and Yes oriented to time MENINGEAL SIGNS: Yes no meningeal signs Skin: COMMON NORMALS: no rashes or lesions noted GENERAL SKIN EXAM: no rashes or lesions noted Course 2 Vital Signs: Vital signs: Vital Signs Temperature 98.2 F 05/16/25 19:40 Pulse Rate 72 05/16/25 21:25 Respiratory Rate 18 05/16/25 21:25 Blood Pressure 133/82 05/16/25 21:25 Pulse Oximetry 100 05/16/25 21:25 Oxygen Delivery Me thod Room Air 05/16/25 21:25 MDM - General Adult Medical Decision Making Patient feeling better after GI cocktail as well as medications given for his headache. Upon reexamination he is sleeping comfortably in no acute distress. His vital signs have remained stable throughout his emergency department stay. His blood work overall is unremarkable. UA is clear. Abdominal exam is nonsurgical. Will place him on Carafate/PPI over the next 2 weeks. Discussed other etiologies including enteritis/colitis. Discussed bland liquid diet and advancing as tolerated. Would like him to follow-up with his primary care provider this week for re-evaluation. Return to ED precautions discussed. Medical Records I reviewed the patient's medical records. Lab Data I reviewed the patient's lab results. 05/16/25 21:18 05/16/25 21:18 Laboratory Results WBC 7.79 10^3/uL (3.29-11.43) 05/16/25 21:18 RBC 5.85 10^6/uL (3.85-5.65) H 05/16/25 21:18 Hgb 16.60 g/dL (11.27-16.99) 05/16/25 21:18 Hct 48.2 % (37-53) 05/16/25 21:18 MCV 82.4 fl (82-101) 05/16/25 21:18 MCH 28.4 pg (27-33) 05/16/25 21: MCHC 34.4 g/dL (30-55) 05/16/25 21:18 RDW 12.0 % (12.1-15.1) L 05/16/25 21:18 Plt Count 337 10^3/cmm (157-399) 09/14/25 21:18 MPV 10.9 fL (7.4-10.4) H 05/16/25 21:18 Neut % (Auto) 68.7 % 05/16/25 21:18 Lymph % (Auto) 23.1 % 05/16/25 21:18 Frio % (Auto) 6.5 % 05/16/25 21:18 Eos % (Auto) 0.9 % 05/16/25 21:18 Baso % (Auto) 0.4 % 05/16/25 21:18 Neut # (Auto) 5.35 10^3/uL (1.8-7.7) 05/16/25 21:18 Lymph # (Auto) 1.8 10^3/uL (0.8-4.8) 05/16/25 21:18 Frio # (Auto) 0.5 10^3/uL (0.2-0.9) 05/16/25 21:18 Eos # (Auto) 0.1 10^3/uL (0.0-0.8) 05/16/25 21:18 Baso # (Auto) 0.0 10^3/uL (0.0-0.1) 05/16/25 21:18 Nucleated RBC % (auto) 0 % 05/16/25 21:18 Nucleated RBCs # 0.0 /100WBC 05/16/25 21:18 Sodium 140 mmol/L (136-145) 05/16/25 21:18 Potassium 3.7 mmol/L (3.5-5.1) 05/16/25 21:18 Chloride 102 mmol/L (98-107) 05/16/25 21:18 Carbon Dioxide 28 mmol/L (22-29) 05/16/25 21:18 Anion Gap 13.7 (5-19) 05/16/25 21:18 BUN 16 mg/dL (6-20) 05/16/25 21:18 Creatinine 1.1 mg/dL (0.7-1.2) 05/16/25 21:18 GFR Calculation 82.2 mL/min (90-130) L 05/16/25 21:18 Glucose 101 mg/dL (65-115) 05/16/25 21:18 Calculated Osmolality 291 mOsm/kg (285-295) 05/16/25 21:18 Calcium 9.9 mg/dL (8.5-10.5) 05/16/25 21:18 Total Bilirubin 0.3 mg/dL (0.15-1.2) 05/16/25 21:18 AST 13 U/L (0-40) 05/16/25 21:18 ALT 9 U/L (0-41) 05/16/25 21:18 Alkaline Phosphatase 82 U/L (40-130) 05/16/25 21:18 Total Protein 7.9 g/dL (6.6-8.7) 05/16/25 21:18 Albumin 5.1 g/dL (3.5-5.2) 05/16/25 21:18 Globulin 2.8 g/dL (1.3-4.6) 05/16/25 21:18 Lipase 31 U/L (13-60) 05/16/25 21:18 Urine Color Yellow (Yellow) 05/16/25 21:32 Urine Appearance Turbid (CLEAR) A 05/16/25 21:32 Urine pH 7.5 (5-7) 05/16/25 21:32 Ur Specific [place] 1.020 (1.005-1.030) 05/16/25 21:32 Urine Protein Negative (Negative) 05/16/25 21:32 Urine Glucose (UA) Negative (Normal) 05/16/25 21:32 Urine Ketones Negative (Negative) 05/16/25 21:32 Urine Blood Negative (Negative) 05/16/25 21:32 Urine Nitrate Negative (Negative) 05/16/25 21:32 Urine Bilirubin Negative (Negative) 05/16/25 21:32 Urine Urobilinogen 1.0 mg/dL (Negative) 05/16/25 21:32 Ur Leukocyte Esterase Negative (Negative) 05/16/25 21:32 Urine RBC 0-2 /hpf (0-2) 05/16/25 21:32 Urine WBC 0-5 /hpf (0-5) 05/16/25 21:32 Ur Squamous Epith Cells 0-5 /hpf (0-5) 05/16/25 21:32 Amorphous Sediment Not Reportable 05/16/25 21:32 Urine Bacteria None seen /hpf (NONE) 05/16/25 21:32 Hyaline Casts 0-4 /lpf H 05/16/25 21:32 No radiology studies performed this visit Discharge Plan Discharge Patient Disposition: Home Clinical Impression: Abdominal pain Qualifiers: Abdominal location: generalized Qualified Code(s): R10.84 - Generalized abdominal pain Headache Qualifiers: Headache type: unspecified Headache chronicity pattern: acute headache I ntractability: not intractable Qualified Code(s): R51.9 - Headache, unspecified Condition: Stable Prescriptions: New sucralfate [Carafate] 1 gram tablet 1 g PO TID 14 Days Qty: 42 0RF pantoprazole [Protonix] 40 mg tablet,delayed release (DR/EC) 40 mg PO DAILY 14 Days Qty: 14 0RF Discharge Orders: Discharge ED (Routine); Ordered 05/16/25 Ordered By: Lavern Dodge Referrals: Diane Brito FNP [Primary Care Provider, Nurse Practitioner] Patient Instructions: Abdominal Pain (ED), Patient Portal & [facility] Instructions Activity Restrictions/Additional Instructions: As we discussed, your blood work here overall was unremarkable. I would like you to do a bland liquid diet over the next 48 hours. You could slowly increase this to soft foods as tolerated and then from there back to a full diet-again as tolerated. Please follow-up with your primary care provider next week for reevaluation. May return to the emergency department for any further concerns you may have. Print Language: Iranian Coding Level of Care Code ED Engraving Plate Maker for Darnell Connolly
[2025-05-16 21:42] LABS: Glucose Urine UA Negative (Normal); Nitrate Urine Negative (Negative); Specific Gravity, Urine 1.020 (1.005-1.030)
[2025-05-16 21:47] LABS: Hematocrit 48.2 % (37-53); Hemoglobin 16.60 g/dL (11.27-16.99); Mean Corpuscular HGB Conc 34.4 g/dL (30-55); Mean Corpuscular Hemoglobin 28.4 pg (27-33); Mean Corpuscular Volume 82.4 fl (82-101); Nucleated Red Blood Cells % 0 %; Platelet Count 337 10^3/cmm (157-399); Red Blood Count 5.85 10^6/uL (3.85-5.65); White Blood Count 7.79 10^3/uL (3.29-11.43)
[2025-05-16 21:47] LABS: Add Urine Microscopic? YES
[2025-05-16] MEDS: ondansetron 2 mg/ML SDV 2 mL 4 MG IVP (21:47)
[2025-05-16] MEDS: lidocaine 2% viscous 15 ML, aluminum-mag hydrox-simethicon 30 ML, sucralfate oral liq 1 GM PO (21:47)
[2025-05-16] MEDS: diphenhydrAMINE 50 mg/mL SDV 1mL 25 MG IVP (21:47)
[2025-05-16 22:08] LABS: Alanine Aminotransferase 9 U/L (0-41); Albumin Level 5.1 g/dL (3.5-5.2); Alkaline Phosphatase 82 U/L (40-130); Anion Gap 13.7 (5-19); Aspartate Amino Transferase 13 U/L (0-40); Blood Urea Nitrogen 16 mg/dL (6-20); Calcium 9.9 mg/dL (8.5-10.5); Carbon Dioxide 28 mmol/L (22-29); Chloride 102 mmol/L (98-107); Creatinine Clr Calc Pharmacy 99.6001; Globulin 2.8 g/dL (1.3-4.6); Glucose 101 mg/dL (65-115); Lipase 31 U/L (13-60); Osmolality Calculated 291 mOsm/kg (285-295); Potassium 3.7 mmol/L (3.5-5.1); Sodium 140 mmol/L (136-145); Total Protein 7.9 g/dL (6.6-8.7)
[2025-05-16 23:18] VITALS: BP 122/63; PULSE 55; RESP 14; O2SAT 98
== END 2025-05-16 23:21 | disposition home or self-care (01) ==
PROVIDERS: Emergency Provider Physician Assistant; PCP Registered Nurse
DX: R10.84 Generalized abdominal pain (principal); R51.9 Headache, unspecified
CPT/HCPCS: 36415; 80053; 81001; 83690; 85025; 96374; 96375; 99284; J1100; J1200; J2405; J9999